=== PATIENT | female | born 1985 | race American Indian/Alaskan Native ===

== ENCOUNTER 2019-03-14 08:23 | Day surgery (SDC) | payer OTHER ==
[~2019-03-14 08:23] MED LIST: BACITRACIN 50000 UNIT VIAL ONE; CEFAZOLIN SODIUM 1 GM/VIAL ONE; DEXAMETHASONE 10 MG/ML VIAL ONE; FENTANYL CITR 250 MCG/5 ML ONE; GENTAMICIN SULF 80 MG/2ML INJ ONE; GLYCOPYRROLATE 0.2 MG/ML SYR ONE; LIDOCAINE 2% MPF 5 ML VIAL ONE; MIDAZOLAM HCL 2 MG/2 ML INJ ONE; Mastisol Adhesive Liq ONE; NS 0.9% VIAL 20 ML ONE; ONDANSETRON 4 MG/2 ML VIAL ONE; PROPOFOL 200 MG/20 ML VIAL IV ONE; ROCURONIUM 50 MG/5 ML VIAL IV ONE; Ringers Lactate 1,000 ML IV ONE
[2019-03-14] MEDS ORDERED: CEFAZOLIN/SWI 1gm 1 GM/10 ML SYR ONE (08:50)
[2019-03-14] MEDS ORDERED: Ringers Lactate 1,000 ML IV ONE (08:50)
[2019-03-14] MEDS ORDERED: SCOPOLAMINE HYDROBROMIDE PATCH TD ONE (09:06)
[2019-03-14] MEDS ORDERED: EPHEDRINE SULF 50 MG/ML VIAL ONE (11:16)
[2019-03-14] MEDS ORDERED: FENTANYL CITR 100 MCG/2 ML ONE (12:16)
[2019-03-14] MEDS ORDERED: MORPHINE 10 MG/ML VIAL ONE (12:17)
[2019-03-14] MEDS ORDERED: KETOROLAC 30 MG/ML INJ ONE (13:33)
[2019-03-14] MEDS ORDERED: NEOSTIGMINE 1 MG/ML -10 ML VIAL ONE (13:34)
[2019-03-14] MEDS ORDERED: ONDANSETRON 4 MG/2 ML VIAL ONE (15:43)
--- NOTE | 2019-03-14 17:13 | OP ---
Surgeon: Faheem Kathleen MD Quality Assurance Consultant: Slava. Preoperative Diagnosis: Breast descent. Postoperative Diagnosis: Breast descent. Procedure Performed: Breast lift. Anesthesia: General. Description Of Procedure: After satisfactory induction of general anesthesia, chest was prepped with DuraPrep. Dry sterile drapes applied in the usual manner. A 50 mm template was used to outline the right and left areolas. Then, transverse and curvilinear incisions were made. The intervening skin was de-epithelialized with EpiCut and dermabrader. Then, a transverse incision was made. Flap thic kness 1.2 elevated towards the sternum, clavicle, and anterior axillary line. Both sides were done s imultaneously and then the inferior incision was made. The de-epithelialized tissue was formed into a cone. Prior to conization, tissue was removed on the left side. Conization was performed with 2-0 PDS sutures. The straps were woven in the right breast at 12 o'clock, 1:30, and 3 o'clock position. Mirror image was done on the left breast. The straps were then woven in and out of the pectoralis major muscle and then back to the base of the cone, back to the pectoralis muscle and then eventually tied to themselves at the base of the cone with 2-0 PDS. The strap the 3 o'clock position was sewn over the sternum with 2-0 Ethibond. Mirror image was done left side. The wound was carefully staple d shut. The patient was sat up and checked for symmetry. Excess skin was cut off. It was removed a nd then, a 10 NANCY was brought to the axilla. The wound was irrigated with antibiotic solution. Elect rocautery was used for hemostasis. Then, a 10 NANCY was sewn in place with 4-0 silk sutures. Wound was closed in layers, 3-0 Vicryl subcu, 3-0 PDS running subcuticular tie in the vertical meridian of the breast. Left side was done similar. The patient was sat up. Site for new nipple-areolar complex w as marked out. The tissue was cored out, and nipple was delivered, sewn with interrupted 4-0 PDS fol lowed by 4-0 PDS running subcuticular. Dressings consisted of tincture of benzoin, Steri-Strips, fib erglass mesh, fluffs and Satish wrap. Amount of tissue removed from right breast 24 g, left breast 126 g. MURIEL/MODLarissa Voice ID: [id number] Report ID: [id number]
== END 2019-03-14 16:30 | disposition home or self-care (01) ==
LOC: OR 08:23
PROVIDERS: ATTEND Specialist
PROC: 0HSV0ZZ Reposition Bilateral Breast, Open Approach (ICD-10-PCS; principal; 2019-03-14 09:00)
DX: N64.81 Ptosis of breast (principal)
CPT/HCPCS: 81025; 88305; J0690; J1100; J1580; J2250; J2405; J2704; J2710; J3010